=== PATIENT | male | born 1985 | race Caucasian/White ===

== ENCOUNTER → 2019-10-25 15:50 | Outpatient (CLI) | payer MEDICARE, SELFPAY ==
--- NOTE | 2019-10-25 | DI.MRI.S_ITS ---
PROCEDURE: MR CERVICAL SPINE WO CON INDICATIONS: other spondylosis with radiculopathy, cervical TECHNIQUE: Noncontrast sagittal T1 spin echo and T2 fast spin echo, sagittal STIR, foraminal oblique sagittal T2 fast spin echo, and axial gradient echo or T2 fast spin echo through the cervical spine. COMPARISON: None. FINDINGS: Image quality: This examination is limited by involuntary motion artifact. Alignment and Curvature: There is normal bony alignment. Bone Marrow: Marrow demonstrates normal overall signal. Spinal Cord: Visualized spinal cord has normal size. Prominence of the central canal can be seen throughout the cervical spine. No cerebellar tonsillar herniation. Paraspinous Soft Tissues: No paravertebral masses. Prevertebral soft tissues are normal in thickness. C2-C3: Mild loss of disc height is seen. Loss of disc signal is seen. Mild to moderate disc osteophyte complex is seen, which is eccentric to the right. There is moderate right-sided and mild left-sided neural foraminal narrowing seen. Mild central canal narrowing is seen. C3-C4: Tqgm-vv-zcypqrkh loss of disc height and disc signal can be seen. Moderate disc osteophyte complex is seen, with a central disc osteophyte protrusion. There is moderate facet hypertrophy seen, left worse than right. There is moderate to severe left-sided and moderate right-sided neural foraminal narrowing seen. At least moderate central canal narrowing is seen. There is associated mass effect upon the ventral spinal cord. C4-C5: Ctqo-zl-grawqhmp loss of disc height and disc signal can be seen. Moderate disc osteophyte complex is seen, which is eccentric to the left. There is a left lateral recess/left foraminal disc extrusion. There is a left lateral recess/left foraminal disc osteophyte protrusion seen. Mild to moderate facet hypertrophy is seen. There is moderate to severe left-sided and moderate right-sided neural foraminal narrowing seen. Moderate to severe central canal narrowing is seen. There is associated mass effect upon the ventral spinal cord. C5-C6: Moderate loss of disc height is seen. Loss of disc signal is seen. Moderate disc osteophyte complex is seen, which is eccentric to the left. There is a left lateral recess disc extrusion seen extending into the left neural foramen, with mild superior migration of the disc material. Moderate bilateral neural foraminal narrowing is seen. There is moderate to severe bilateral neural foraminal narrowing seen at this level. Moderate to severe central canal narrowing is seen. There is associated mass effect upon the ventral spinal cord. C6-C7: The disc height and disc signal are relatively well preserved. Mild to moderate disc osteophyte complex is seen, which is eccentric to the right. Mild facet joint hypertrophy is seen. Moderate bilateral neural foraminal narrowing is seen. No significant central canal narrowing is seen. C7-T1: The disc height and disk signal are well-preserved. A mild degree of generalized disc osteophyte complex is seen. Mild facet joint hypertrophy is seen. There is mild to moderate left-sided and no significant right-sided neural foraminal narrowing seen. No significant central narrowing is seen. IMPRESSION: There is abnormal prominence of the central canal. If clinically appropriate, please consider a follow-up contrast-enhanced examination to evaluate for a potential underlying cervical cord mass. Multiple levels of premature cervical spine degenerative change are seen, which are most prominent at the C5-C6 level. Dictated by: Santiago Keane M.D. on 10/25/2019 at 16:21 Approved by: Santiago Keane M.D. on 10/25/2019 at 16:27
== END ==
LOC: MRI 15:57
PROVIDERS: PCP Student in an Organized Health Care Education/Training Program; Referring Provider Student in an Organized Health Care Education/Training Program; Visit Provider Orthopaedic Surgery Orthopaedic Surgery of the Spine
DX: M47.22 Other spondylosis with radiculopathy, cervical region (principal)
CPT/HCPCS: 72141

== ENCOUNTER → 2019-11-09 11:02 | Outpatient (CLI) | payer MEDICARE, SELFPAY ==
--- NOTE | 2019-11-09 | DI.MRI.S_ITS ---
PROCEDURE: MR CERVICAL SPINE WO/W CON INDICATIONS: Radiculopathy, cervical region TECHNIQUE: Noncontrast sagittal T1 spin echo and T2 fast spin echo, sagittal STIR, foraminal oblique sagittal T2 fast spin echo, axial gradient echo or T2 fast spin echo through the cervical spine. After the administration of contrast, axial and sagittal T1 spin echo with fat saturation through the cervical spine. COMPARISON: [facility], MR, MR CERVICAL SPINE WO CON, 10/25/2019, 16:21. [facility], CR, XR CERVICAL SPINE 2 OR 3 VIEWS, 08/21/2019, 14:59. FINDINGS: Image quality: Excellent. Alignment and curvature: Loss of normal cervical lordosis. Mild grade 1 retrolisthesis of C3 on C4, C4 on C5, and C5 on C6. Marrow: Marrow is normal in overall signal, without suspicious enhancement. Spinal cord: Visualized spinal cord has normal size . High T2 signal intensity within the central medulla, extending into the mid and posterior aspect of the cervical cord to the mid C7 level, is unchanged. No cerebellar tonsillar herniation. No abnormal intramedullary enhancement. Paraspinous soft tissues: No paravertebral masses or suspicious enhancement. C2-3: Congenital canal stenosis. Moderate disc height loss and desiccation. Mild diffuse disc bulge. Mild facet and uncovertebral hypertrophy bilaterally. Mild canal stenosis. Mild bilateral foraminal stenosis. C3-4: Congenital canal stenosis. Moderate disc height loss and desiccation. Moderate diffuse disc bulge. Mild facet and uncovertebral hypertrophy bilaterally. Severe canal stenosis. Minimal cord flattening. Moderate right and severe left foraminal stenosis. Left C4 nerve root compression. C4-5: Moderate disc height loss and desiccation. Moderate diffuse disc bulge with superimposed left posterolateral protrusion. Congenital canal stenosis. Mild facet and uncovertebral hypertrophy, left greater than right. Moderate to severe canal stenosis. Severe left and moderate right foraminal stenosis. Left C5 nerve root compression. C5-6: Moderate disc height loss and desiccation. Moderate diffuse disc bulge with superimposed left posterolateral protrusion. Congenital canal stenosis. Moderate facet and uncovertebral hypertrophy bilaterally. Severe canal stenosis. Minimal cord flattening. Severe left greater than right foraminal stenosis with left greater than right C6 nerve root compression. C6-7: Mild disc height loss and desiccation. Mild diffuse disc bulge. Mild facet and uncovertebral hypertrophy bilaterally. Mild canal stenosis. Moderate left and mild right foraminal stenosis. C7-T1: Mild facet and uncovertebral hypertrophy bilaterally. No canal stenosis. Mild bilateral foraminal stenosis. IMPRESSION: 1. T2 signal elevation within the medulla and cervical cord as described above without associated enhancement. Differential considerations include cord edema, myelitis, multiple sclerosis, cord injury/infarct, and metabolic sequelae. Clinical correlation recommended. Initial further assessment with brain MRI with and without intravenous contrast is recommended. 2. Diffuse congenital canal stenosis with superimposed multilevel degenerative disc and facet disease, as well as uncovertebral hypertrophy. 3. Multilevel canal stenosis, worst at C3-C4 and C5-C6, where there is minimal cord flattening. 4. Multilevel foraminal stenosis, worst at C3-C4, C4-C5, and C5-C6 where there is associated intraforaminal nerve root compression. Dictated by: Giovany Florian M.D. on 11/09/2019 at 14:34 Transcribed by: OMI on 11/09/2019 at 14:51 Approved by: Giovany Florian M.D. on 11/09/2019 at 15:11
== END ==
PROVIDERS: PCP Student in an Organized Health Care Education/Training Program; Referring Provider Student in an Organized Health Care Education/Training Program; Visit Provider Orthopaedic Surgery Orthopaedic Surgery of the Spine
DX: M50.11 Cervical disc disorder with radiculopathy, high cervical region (principal); M48.02 Spinal stenosis, cervical region
CPT/HCPCS: 72156

== ENCOUNTER → 2019-11-21 16:42 | Outpatient (CLI) | payer MEDICARE, SELFPAY ==
--- NOTE | 2019-11-21 16:44 | DI.MRI.S_ITS ---
PROCEDURE: MR HEAD/BRAIN WO/W CON INDICATIONS: SPONDYLIOSIS WITH RADICULOPATHY, CERVICAL REGION TECHNIQUE: Noncontrast axial T1 spin echo, axial T2 fast spin echo, sagittal and axial FLAIR, coronal T2 fast spin echo, axial gradient echo, axial diffusion and ADC through the brain. After the administration of contrast, axial and coronal 3D VIBE or T1 spin echo with fat saturation through the brain. COMPARISON: [facility], MR, MR CERVICAL SPINE WO/W CON, 11/09/2019, 11:40. FINDINGS: Image quality: Excellent. CSF Spaces: Basal cisterns are patent. No extra-axial fluid collections. Ventricles are normal in size and shape. Brain: No midline shift. No intracranial bleeds or masses. No abnormal intracranial enhancement. The brainstem appears normal. Diffusion-weighted images demonstrate no acute ischemic insults. No chronic ischemic insults. Normal intravascular flow voids are present. Only a small portion of the upper cervical cord is included in this study, and this area and the contiguous lower margin of the medulla show no change from findings noted on prior cervical MR study 11/09/19. The central spinal canal appears mildly prominent, at the lower imaging margin. Skull and face: Calvarial marrow is normal in signal. Orbits appear normal. Sinuses: Sinuses and mastoids appear clear. IMPRESSION: No lesion found within the brain parenchyma. Stable appearance of the small portion of the cervical cord and lower margin of the medulla with reference to the prior MR scanning from 11/09/19. A component of hydromyelia appears present. Dictated by: Brandon Snider M.D. on 11/22/2019 at 8:00 Approved by: Brandon Snider M.D. on 11/22/2019 at 8:06
== END ==
PROVIDERS: PCP Student in an Organized Health Care Education/Training Program; Referring Provider Student in an Organized Health Care Education/Training Program; Visit Provider Physical Medicine & Rehabilitation Pain Medicine
DX: M47.22 Other spondylosis with radiculopathy, cervical region (principal)
CPT/HCPCS: 70553; A9579

== ENCOUNTER 2019-11-26 13:18 | Emergency (ER) | payer MEDICARE, SELFPAY ==
--- NOTE | 2019-11-26 13:36 | DI.RAD.S_ITS ---
PROCEDURE: XR ANKLE LT MIN 3V INDICATIONS: fall, lt ankle/foot pain/swelling TECHNIQUE: 3 views of the ankle were acquired. COMPARISON: None. FINDINGS: Bones: No fractures or dislocations. Ankle mortise is normally aligned. No suspicious bony lesions. Soft tissues: No tibiotalar joint effusion. Achilles tendon appears normal. IMPRESSION: No trauma found. Dictated by: Brandon Snider M.D. on 11/26/2019 at 14:24 Approved by: Brandon Snider M.D. on 11/26/2019 at 14:25
--- NOTE | 2019-11-26 13:36 | DI.RAD.S_ITS ---
PROCEDURE: XR FOOT LT MIN 3V INDICATIONS: fall, lt ankle/foot pain/swelling TECHNIQUE: 3 views of the foot were acquired. COMPARISON: [facility], CR, XR ANKLE LT MIN 3V, 11/26/2019, 13:27. FINDINGS: Bones: No dislocations. No suspicious bony lesions. There is a set of fractures across the base of each of the 2nd 3rd and 4th metatarsal bones, most prominently involving the base of the 2nd metatarsal bone, and the appearance raises concern for Lisfranc fracture and instability of the fracture planes is potentially present Soft tissues: No tibiotalar joint effusion. Achilles tendon appears normal. IMPRESSION: Mildly displaced multiple fractures at the base of the metatarsal bones, involving the 2nd 3rd and 4th metatarsal bones with transverse fractures and mild comminution. This may represent an unstable fracture, Lisfranc fracture, and orthopedic surgical consultation is recommended. Dictated by: Brandon Snider M.D. on 11/26/2019 at 14:25 Approved by: Brandon Snider M.D. on 11/26/2019 at 14:27
[2019-11-26 13:52] VITALS: BP 165/101; PULSE 100; RESP 20; O2SAT 99
--- NOTE | 2019-11-26 15:16 | ED.LOWEXIN ---
HPI - Extremity Injury (Lower) <FAWN Kraus - Last Filed: 11/26/19 22:02> General Chief Complaint: Extremity Injury, Lower Stated Complaint: Fell Off Take, States Broke Left Foot Time Seen by Provider: 11/26/19 13:58 Source: patient Mode of arrival: Ambulatory Limitations: no limitations History of Present Illness HPI Narrative: This is a 34-year-old male who presents to ED with significant other with chief complain of left foot pain after injury yesterday. Patient reports he accidentally fell of the dock and hyper extended his foot. He reports 10/10 pain in dorsal and plantar all aspect of his midfoot with significant swelling. He denies pain in his ankle. Patient denies previous injury to same foot or ankle. He reports intact sensation and mobility to his toes. He denies open skin with this injury. Patient had used ice pack last night and had taken ibuprofen 600 mg at 10:00 a.m. today. Pain increases with movement it is and bearing weight and rates as 10/10. Patient currently takes Suboxone for previous drug addiction. Review of Systems <FAWN Kraus - Last Filed: 11/26/19 22:02> Review of Systems Narrative: General: Denies fever, chills, fatigue, malaise, sweats. HEENT: Denies sinus pain, ear pain, sore throat, difficulty swallowing, dizziness. Respiratory: Denies dyspnea, cough, wheezing, hemoptysis, sputum. Cardiovascular: Denies chest pain, palpitations, orthopnea, edema. Gastrointestinal: Denies nausea, vomiting, abdominal pain, diarrhea, constipation, melena. : Denies dysuria, frequency, incontinence, hematuria, urinary retention. Musculoskeletal: See HPI Skin: Denies rash, skin lesions, or other. Neurologic: Denies weakness, headache, numbness, change in speech, confusion, seizures, incoordination. Psychiatric: No concerning psychosocial issues. 12-point review of systems is negative except for those stated above. Patient History <FAWN Kraus - Last Filed: 11/26/19 22:02> Medical History Decreased vision (Acute) Drug use (Acute) Neck pain (Acute) Surgical History No pertinent past surgical history (Acute) Substance Use Type: former substance user Exam <FAWN Kraus - Last Filed: 11/26/19 22:02> Narrative Exam Narrative: General appearance: well developed, well nourished, in mild distress from discomfort. Head: normocephalic, atraumatic, no scalp lesions, non-tender. ENT: Hearing grossly intact. Nose without bleeding, purulent discharge. Arway patent. Neck/Thyroid: neck supple, full range of motion, no visible masses or meningeal signs. No JVD, non-tender without lymphadenopathy. Skin: no suspicious rashes, lesions over visible areas. Warm and dry and appropriate color for ethnicity. Heart: no clubbing, no cyanosis, no edema. Lungs: Breathing even and unlabored. No stridor. No accessory muscles used. Able to speak in full sentences. Chest: normal shape and expansion. Abdomen: non-obese, non-distended. Neurologic: alert and oriented. Cognitive exam, [employer] and PNS grossly intact on informal exam. Psych: good eye contact, normal affect. Initial Vital Signs Initial Vital Signs: Vital Signs Pulse Rate 100 H 11/26/19 13:52 Respiratory Rate 11/26/19 13:52 Blood Pressure 165/101 H 11/26/19 13:52 Pulse Oximetry 99 11/26/19 13:52 Extrem Left lower extremity: lower leg Details: normal to inspection; no tenderness and no localized swelling, ankle Details: normal to inspection; no tenderness and no swelling and foot Details: abnormal to inspection, tenderness Location: of the dorsal foot, of the plantar foot and of the mid foot, abnormal ROM of toe Details: pain with active ROM and pain with passive ROM, edema Location: of the dorsal foot and of the plantar foot, ecchymosis (mid foot), vascular exam Details: dorsalis pedis pulse present and normal capillary refill and motor-sensory exam Details: light-touch normal; no unusual warmth, no lacerations, no crepitus and no puncture wound <Ave Saleh DO - Last Filed: 11/28/19 08:32> Initial Vital Signs Initial Vital Signs: Vital Signs Pulse Rate 100 H 11/26/19 13:52 Respiratory Rate 11/26/19 13:52 Blood Pressure 165/101 H 11/26/19 13:52 Pulse Oximetry 99 11/26/19 13:52 Procedures <Ross DuganFAWN - Last Filed: 11/26/19 22:02> Orthopedic Splinting/Casting Injury #1: Side: left Lower Extremity Injury Location: foot Lower Extremity Immobilizer: posterior splint Other Orthopedic Equipment: crutches Post splinting neuro exam: intact Post splinting vascular exam: intact Placed by: Nursing Scores <Ross HuntFAWN thomas - Last Filed: 11/26/19 22:02> GCS Maggie coma scale eye opening: Spontaneous [place] coma scale verbal response: Orientated [place] coma scale motor response: Obey commands Maggie coma scale total score: 15 Course <Ross DuganFAWN - Last Filed: 11/26/19 22:02> Orders Ordered: Discontinued Medications Acetaminophen (Tylenol) 650 mg PO NOW ONE Stop: 11/26/19 15:19 Last Admin: 11/26/19 15:30 Dose: 650 mg Documented by: BetoZOUTIS Ibuprofen (Advil) 400 mg PO NOW ONE Stop: 11/26/19 16:08 Last Admin: 11/26/19 16:10 Dose: 400 mg Documented by: KIERAN Consultations Consultation #1: Dr. Delgado consulted with xray and physical findings. He recommended elevation and ice to decrease swelling and put patient on short leg splint with crutches for nonweightbearing and to follow-up with Dr. Garza by calling the office tomorrow. Time: 15:17 Vital Signs Vital signs: Vital Signs - 8 hr 11/26/19 13:52 Pulse Rate 100 H Respiratory Rate 20 Blood Pressure 165/101 H Pulse Oximetry 99 <Ave Saleh DO - Last Filed: 11/28/19 08:32> Orders Ordered: Discontinued Medications Acetaminophen (Tylenol) 650 mg PO NOW ONE Stop: 11/26/19 15:19 Last Admin: 11/26/19 15:30 Dose: 650 mg Documented by: BetoZOUTIS Ibuprofen (Advil) 400 mg PO NOW ONE Stop: 11/26/19 16:08 Last Admin: 11/26/19 16:10 Dose: 400 mg Documented by: KIERAN Vital Signs Vital signs: Vital Signs - 8 hr 11/26/19 13:52 Pulse Rate 100 H Respiratory Rate 20 Blood Pressure 165/101 H Pulse Oximetry 99 MDM - Extremity Injury (Lower) <FAWN Kraus - Last Filed: 11/26/19 22:02> Differential Diagnosis Differential diagnosis: Likely ankle sprain and strain and other (Foot strain, foot fracture, ankle fracture,) Medical Records Attestation: I reviewed the patient's medical records. Imaging Data XR-Foot LT: Radiologist's Impression: [address] [id number] XRay Report Signed Patient: Scottie Hernandez PMR#: [id number] : 1985Acct:[id number] Age/Sex: 34 / MDate of Service: 11/26/19 Loc: ED Accession Number: [id number] Procedure: XR foot LT min 3V Ordering Provider: Ave Saleh D.O. PROCEDURE: XR FOOT LT MIN 3V INDICATIONS: fall, lt ankle/foot pain/swelling TECHNIQUE: 3 views of the foot were acquired. COMPARISON: [facility], , XR ANKLE LT MIN 3V, 11/26/2019, 13:27. FINDINGS: Bones: No dislocations. No suspicious bony lesions. There is a set of fractures across the base of each of the 2nd 3rd and 4th metatarsal bones, most prominently involving the base of the 2nd metatarsal bone, and the appearance raises concern for Lisfranc fracture and instability of the fracture planes is potentially present Soft tissues: No tibiotalar joint effusion. Achilles tendon appears normal. IMPRESSION: Mildly displaced multiple fractures at the base of the metatarsal bones, involving the 2nd 3rd and 4th metatarsal bones with transverse fractures and mild comminution. This may represent an unstable fracture, Lisfranc fracture, and orthopedic surgical consultation is recommended. Dictated by: Brandon Snider M.D. on 11/26/2019 at 14:25 Approved by: Brandon Snider M.D. on 11/26/2019 at 14:27 XR-Ankle LT: Radiologist's Impression: [address] [address] XRay Report Signed Patient: Scottie Hernandez PMR#: [id number] : 1985Acct:[id number] Age/Sex: 34 / MDate of Service: 11/26/19 Loc: ED Accession Number: [id number] Procedure: XR ankle LT min 3V Ordering Provider: Ave Saleh D.O. PROCEDURE: XR ANKLE LT MIN 3V INDICATIONS: fall, lt ankle/foot pain/swelling TECHNIQUE: 3 views of the ankle were acquired. COMPARISON: None. FINDINGS: Bones: No fractures or dislocations. Ankle mortise is normally aligned. No suspicious bony lesions. Soft tissues: No tibiotalar joint effusion. Achilles tendon appears normal. IMPRESSION: No trauma found. Dictated by: Brandon Snider M.D. on 11/26/2019 at 14:24 Approved by: Brandon Snider M.D. on 11/26/2019 at 14:25 MDM Narrative Medical decision making narrative: Patient has significant swelling and discomfort on left dorsal foot and plantar aspect of midfoot with light ecchymosis dorsally. Intact pedal pulse with brisk cap refill and sensation distally. Patient is able to move toes reports discomfort with this. X-ray test shows mildly displaced multiple fractures at the base of the metatarsal bones involving 2nd, 3rd and 4th metatarsal bones with transverse fractures and mild comminution and concerned for Lisfranc fracture. Ankle x-ray without acute findings. Dr. Delgado consulted with physical and xray findings. Patient's affected foot was placed done bulky dressing short leg splint. Applied ice pack and continue to elevate on affected leg to decrease swelling. Patient medicated with Tylenol and Motrin while in ED. due to patient is currently taking Suboxone narcotic medication was not prescribed at this time. Patient advised to contact his addiction clinic provider to discuss his foot injury and recommendation for pain management and to contact this clinician tomorrow. RICE therapy discussed to prevent increasing swelling and compartment syndrome and return precautions were discussed with patient. Patient advised nonweightbearing on affected leg. Patient advised to follow-up with [facility] orthopedist tomorrow morning by calling to set up an follow-up appointment with Dr. Garza as Dr. Delgado recommended. Patient verbalized understanding and agreement with the treatment plan. Discharge Plan Departure Patient Disposition: Home Clinical Impression: Lisfranc fracture Discharge Date/Time: 11/26/19 16:33 Instructions: DI for Foot Fracture Activity Restrictions/Additional Instructions: You have been diagnosed with [left foot 2nd, 3rd and 4th metatarsal bone fracture concerned for Lisfranc fracture. Affected foot has been placed on splint and please wear this all time. Please no weight-bearing on affected leg and use crutches that has been provided. Please elevate and use ice pack on affected leg for swelling and pain.]. What to do: *Take your medications as directed. Please take [id number] Tylenol and or Motrin as needed for discomfort. With Suboxone use, please contact your addiction clinic provider tomorrow to consult this. I work tomorrow on Tuesday so you can give me a call with the information for pain medication. You can use Tylenol 650-1000 mg 3 to 4 times a day as needed for pain. Ibuprofen 400-600 mg up to 3 to 4 times a day as needed for pain and inflammation and take it with food to decrease GI irritation. *Follow up with your primary care provider in 2-3 days, call for an appointment. Please call [facility] tomorrow morning to follow-up with Dr. Garza this week. Let them know you were seen in the ED and that we asked you to be seen in follow up. *Return to ED if you have any new, worsening, or concerning symptoms, such as [worsening pain, pale and cool toes, increasing tingling/numbness/weakness to affected leg, chest pain, breathing difficulty, or any acute concerns. When swelling is too significant it can compress down to nerves and blood vessels called compartment syndrome. ] Referrals: [facility] [Provider Group] Meenakhsi Cardenas MD [Primary Care Provider] - <Ave Saleh DO - Last Filed: 11/28/19 08:32> [facility] Att[facility]: I was immediately available in the department for consultation. Documentation has been reviewed. I agree with assessment and plan.
[2019-11-26] MEDS: ACETAMINOPHEN 325 MG TABLET 650 MG PO (15:30)
[2019-11-26] MEDS: IBUPROFEN 400 MG TABLET PO (16:10)
== END 2019-11-26 16:33 | disposition home or self-care (01) ==
PROVIDERS: Emergency Provider Nurse Practitioner Family; PCP Student in an Organized Health Care Education/Training Program
DX: S92.322A Displaced fracture of second metatarsal bone, left foot, initial encounter for closed fracture (principal); S92.332A Displaced fracture of third metatarsal bone, left foot, initial encounter for closed fracture; S92.342A Displaced fracture of fourth metatarsal bone, left foot, initial encounter for closed fracture; W17.4XXA Fall from dock, initial encounter
CPT/HCPCS: 73610; 73630; 99283

== ENCOUNTER → 2019-12-21 15:50 | Outpatient (CLI) | payer MEDICARE, SELFPAY ==
--- NOTE | 2019-12-21 | DI.CT.S_ITS ---
PROCEDURE: CT LE LT W CON INDICATIONS: Pain in left foot TECHNIQUE: Noncontrast 1-1.5 mm axial sections acquired from above the tibiotalar joint to the bottom of the calcaneus, with coronal and sagittal reformats. COMPARISON: [facility], CR, XR FOOT LT MIN 3V, 11/26/2019, 13:27. [facility], CR, XR FOOT 3 VIEWS WEIGHT BEARING LEFT, 12/04/2019, 14:04. FINDINGS: Image quality: Excellent. Bones: There is a comminuted, minimally displaced and impacted fracture at the base of the 2nd metatarsal with extension into the 2nd tarsometatarsal joint. The fracture includes the attachment site of the Lisfranc ligament without significant widening of the 1st intermetatarsal space. Additional minimally displaced fractures are seen at the bases of the 3rd and 4th metatarsals. The 3rd metatarsal fracture is minimally comminuted. Soft tissues: Soft tissue edema is seen at the dorsum of the foot. The articular cartilages, ligaments, and tendons including the Lisfranc ligament are not well evaluated with CT. IMPRESSION: Comminuted, minimally displaced, intra-articular fracture of the base of the 2nd metatarsal. Additional minimally displaced fractures are seen at the bases of the 3rd and 4th metatarsals. Dictated by: Ross Conde M.D. on 12/21/2019 at 16:45 Approved by: Ross Conde M.D. on 12/21/2019 at 16:52
== END ==
PROVIDERS: PCP Student in an Organized Health Care Education/Training Program; Referring Provider Student in an Organized Health Care Education/Training Program; Visit Provider Orthopaedic Surgery Foot and Ankle Surgery
DX: M79.672 Pain in left foot (principal); S92.322A Displaced fracture of second metatarsal bone, left foot, initial encounter for closed fracture; S92.332A Displaced fracture of third metatarsal bone, left foot, initial encounter for closed fracture; S92.342A Displaced fracture of fourth metatarsal bone, left foot, initial encounter for closed fracture; X58.XXXA Exposure to other specified factors, initial encounter
CPT/HCPCS: 73700

== ENCOUNTER → 2020-01-01 14:58 | Outpatient (CLI) | payer MEDICARE, SELFPAY ==
[2020-01-02 11:14] LABS: COVID19 Sendout Not Detected (Not Detect)
== END ==
PROVIDERS: PCP Student in an Organized Health Care Education/Training Program; Visit Provider Physician Assistant
DX: Z01.812 Encounter for preprocedural laboratory examination (principal)
CPT/HCPCS: 87635

== ENCOUNTER 2020-01-04 06:24 | Day surgery (SDC) | payer MEDICARE, SELFPAY ==
[2020-01-04] VITALS (9 sets, daily range): BP systolic 108–166; BP diastolic 60–105; PULSE 77–99; RESP 11–20; TEMP 36.2–37.7; O2SAT 96–100; BMI 19.7
[2020-01-04] MEDS: LACTATED RINGERS 1,000 ML 42 ML IV (07:15)
[2020-01-04] MEDS: ACETAMINOPHEN 325 MG TABLET 975 MG PO (07:24)
[2020-01-04] MEDS: SCOPOLAMINE 1 PATCH TOP (07:24)
--- NOTE | 2020-01-04 07:26 | PM.PREOP ---
Pre-operative Note COVID-19 COVID-19 status: Negative Interval Note History & Physical reviewed/Exam performed by Physician: Yes Changes to H&P: No
[2020-01-04] MEDS: CEFAZOLIN 2 GM/100 ML FROZ.PIGGY IV (07:42)
--- NOTE | 2020-01-04 07:56 | SUR.PREOP ---
Block start time [0730] . Monitoring initiated and maintained throughout procedure. Oxygen and medications given per anesthesiologist instructions. Patient remained stable throughout procedure, no adverse reactions noted. Block end time [0740].
--- NOTE | 2020-01-04 08:30 | SUR.OPER ---
Supine on padded OR bed, head on pillow, arms secured on padded arm boards at <90 degrees abduction, legs uncrossed, safety belt at thigh, tape over blanket over lower legs. Bilat heels at foot of bed. Additional blankets under operative leg and bump under left hip per Surgeon.
[2020-01-04] MEDS: BUPIVACAINE 0.25% W/ EPI 30 ML VIAL INJ (08:38)
--- NOTE | 2020-01-04 09:32 | PM.OP.1 ---
Operative Date/Time/Diagnoses Date of procedure: 01/04/20 Time of procedure: 08:05 Pre-op diagnosis: Dislocation tarsometatarsal joint left foot S93.325 Closed nondisplaced fracture 2nd metatarsal bone left foot S92.325 Intercuneiform instability Nondisplaced fractures 3rd and 4th metatarsals Post-op diagnosis: same Procedure & Clinicians Procedure: 1. Open reduction internal fixation Lisfranc injury left foot CPT code 69127 2. Open reduction internal fixation inter cuneiform joint left foot CPT code 42963-16 3. Open reduction internal fixation 2nd metatarsal fracture cpt code 11253 4. Closed treatment 3rd metatarsal fracture cpt 90144 5. Closed treatment 4th metatarsal fracture cpt 25125 Same procedure as scheduled: Yes Indications: Patient is a 34-year-old male that sustained an injury to his left foot after a fall on 11/25/2019 where he fell off a dock. Had a Lisfranc variant injury with fracture of the base of the 2nd metatarsal and 3rd and 4th metatarsal nondisplaced fractures. Id widening of the Lisfranc articulation as well as inter cuneiform. He was indicated for open reduction internal fixation to reduce the risk of posttraumatic arthritis pain and dysfunction. The risks and benefits of the procedure have been discussed with the patient even opportunity to ask questions. The risks of surgery include but are not limited to infection, malunion, nonunion, persistence of pain, damage to nerves and blood vessels, posttraumatic arthritis, DVT, PE, cardiopulmonary complications and . The patient expressed a thorough understanding of the risks and benefits of surgery and has elected to proceed. Consent was signed in the office. Surgeon: Anyi Garza Click Yes if Unassisted: Yes Anesthesia Type: General, Peripheral nerve block and Local Operative Notes Closure Type: primary Specimen(s): none sent Prosthetic devices, grafts, tissues, transplants, or devices: Arthrex 3.5 cortical screw 46mm, Arthrex 3.5 cortical screw 24mm Estimated Blood Loss (mL): 5 Blood products transfused: none Tourniquet time (min): 30 Procedure in detail: Patient was seen in the preoperative area the site of surgery was marked and informed consent confirmed. Patient underwent a popliteal block with the anesthesia team for postoperative pain control. The patient was then brought back to the operating room by the anesthesia team placed supine on operative table. All bony prominence were padded. Well-padded thigh tourniquet was placed. An SCD was placed on the contralateral extremity. Left lower extremities prepped and draped in the standard sterile fashion. Formal time-out procedure was performed confirming the patient's side and site of surgery administration of appropriate preoperative antibiotics. All were in agreement. Mini C-arm fluoroscopy was brought in and planned incisions were marked out. There is a diastasis at the Lisfranc articulation and instability at the inter cuneiform. There was no apparent instability of the 1st TMT. The 3rd and 4th metatarsal fractures remained well reduced. Attention was then turned to the left leg. The Esmarch was used for exsanguination and the tourniquet was elevated to 250 mm of mercury. This was elevated for 30 minutes and then released. A 3 in a 0.5 cm incision over the base of the 2nd ray and 2nd TMT joint was taken down the skin. Careful dissection through the subcutaneous tissues lateral to the neurovascular bundle. This was retracted medially. Dissection was taken down onto the level of the 2nd metatarsal base and middle cuneiform. Dissection was carried to the Lisfranc articulation. Due to the subacute age of the fracture the 2nd metatarsal fracture did have good callus formation and was moving as a unit. Once the Lisfranc articulation was debrided a large Garvey clamp was utilized from a stab incision along the medial cuneiform and to the base of the 2nd metatarsal to reduce the Lisfranc articulation. This was checked on C-arm fluoroscopy. Next a K-wire from the 4 0 cannulated set was placed just distal to the clamp to capture the 2nd metatarsal shaft and directed proximally into the medial cuneiform passing through the Lisfranc articulation and 2nd metatarsal fracture site. Positioning for this screw was checked again on multiplanar fluoroscopy. This was then overdrilled with a cannulated drill and then exchanged for a solid 3.5 position cortical screw. This reduced and fixated both the Lisfranc articulation as well as the 2nd metatarsal base fracture. Next a separate wire was placed from the medial cuneiform across the middle cuneiform to address the inter cuneiform instability. This was again overdrilled with the cannulated drill bit and then replaced with a solid 3.5x 24 mm Arthrex cortical screw. Fixation was then stressed under live fluoroscopy there was no evidence of loss of fixation. Again the 1st TMT joint was stable. Positions of the 3rd and 4th metatarsal fractures were also stable for closed treatment. At this point the tourniquet was released. Hemostasis was achieved. The wound was irrigated and closed with 2 O Vicryl 4 0 Monocryl and 3 O nylon suture. 10 cc of additional local anesthetic was injected. A well-padded posterior splint with bulky Goode cotton was placed. Patient was awoken from anesthesia and taken to the recovery room in good condition. There no immediate complications from this procedure. Complications: none Post-operative Condition: stable Plan for aftercare: Nonweightbearing x6 weeks and progressive weight-bearing in a boot with the arch support. Discussed and less symptomatic would plan to retained hardware. Follow-up in 2 weeks for incision check suture removal. Aspirin for DVT prophylaxis.
--- NOTE | 2020-01-04 10:36 | SUR.PHASEII ---
discontinued both existing IV sites, one to right forearm and one to Right EJ, catheters intact.
== END 2020-01-04 10:35 | disposition home or self-care (01) ==
PROVIDERS: PCP Student in an Organized Health Care Education/Training Program; Referring Provider Student in an Organized Health Care Education/Training Program; Visit Provider Orthopaedic Surgery Foot and Ankle Surgery
PROC: (CPT 28615; principal; 2020-01-04 07:45)
DX: S93.325A Dislocation of tarsometatarsal joint of left foot, initial encounter (principal); S92.322A Displaced fracture of second metatarsal bone, left foot, initial encounter for closed fracture; S92.345A Nondisplaced fracture of fourth metatarsal bone, left foot, initial encounter for closed fracture; S92.335A Nondisplaced fracture of third metatarsal bone, left foot, initial encounter for closed fracture; M25.39 Other instability, other specified joint; W17.89XA Other fall from one level to another, initial encounter; Y92.89 Other specified places as the place of occurrence of the external cause
CPT/HCPCS: 28615; 28485; 28470 ×2; 64450; J0690; J1100; J1885; J2250; J2405; J2704

== ENCOUNTER 2020-06-04 06:31 | Emergency (ER) | payer MEDICARE, SELFPAY ==
[2020-06-04 06:35] VITALS: BP 184/104; PULSE 80; RESP 18; TEMP 35.9; O2SAT 100; BMI 20.3
[2020-06-04 07:00] VITALS: BP 161/105; PULSE 81; RESP 18; O2SAT 100
--- NOTE | 2020-06-04 07:03 | ED.GENADULT ---
HPI - General Adult General Chief complaint: Dizziness Stated complaint: woke up sweating, dizzy, cold tingling Time Seen by Provider: 06/04/20 06:34 Source: patient Mode of arrival: Ambulatory Limitations: no limitations History of Present Illness HPI narrative: 34-year-old male who was on Suboxone and also has an extensive alcohol history who is here in the emergency department last night for being dizzy, sweating, tingling. He states he was up at about 0200 hours in the morning. He was having a hard time sleeping. The initial stated complaint was that he woke up feeling like this but on my exam he states he was awake when the symptoms started. He states that he was using oral tobacco with the time which is not unusual for him trying to go to sleep when he had a sudden onset of dizziness and feeling very thirsty. He states he drank several bottles of water at the time. Did not have any vomiting. Did not have any chest pain or headache. He states that he is legally blind did not think that he had any changes in his vision. He did think that maybe his heart was beating fast at the time but he is unsure. He describes it as tingling in his hands and his feet. He had his girlfriend tried to take his temperature and it was low although he was drinking water at the time. He is diagnosed with high blood pressure but he has not taken any of his metoprolol in the past 2 weeks. He did take 1 of these medicines last evening. At the time my evaluation he stated that he was feeling somewhat better but not completely normal. He did not describe any vertigo symptoms Related Data Home Medications Medication Instructions Recorded Confirmed Suboxone 8 mg DAILY 01/01/20 01/04/20 buprenorphine-naloxone 1 film SUBLINGUAL DAILY 01/04/20 01/04/20 Previous Rx's Medication Instructions Recorded aspirin 325 mg PO DAILY #42 tab 01/04/20 ondansetron HCl [Zofran] 4 mg PO Q8H PRN #5 tab 01/04/20 oxycodone 5 - 10 mg PO Q4H PRN #42 tab 01/04/20 Allergies Allergy/AdvReac Type Severity Reaction Status Date / Time No Known Drug Allergies Allergy Verified 01/01/20 12:38 Review of Systems Constitutional Constitutional: Reports chills, Denies fever(s), Denies headache(s) and Reports weakness Eyes Eyes: Denies change in vision ENT Ears, Nose, Mouth, and Throat: Denies vertigo, Reports dizziness, Denies headache(s) and Reports disequilibrium Cardiovascular Cardiovascular: Denies chest pain, Denies syncope, Reports rapid heart rate, Denies irregular heart rhythm and Denies dyspnea Respiratory Respiratory: Denies cough and Denies dyspnea Gastrointestinal Gastrointestinal: Denies abdominal pain, Denies change in bowel habits, Denies nausea and Denies vomiting Genitourinary Genitourinary: Denies dysuria Genitourinary: Denies dysuria Musculoskeletal Musculoskeletal: Denies arthralgias, Denies myalgias and Reports tingling Integumentary/Breasts Skin/Breast: Denies lesions and Denies rash Neurologic Neurologic: Denies confusion, Denies vertigo, Reports dizziness, Denies syncope, Denies headache(s), Denies convulsions, Reports tingling, Reports disequilibrium and Reports weakness Psychiatric Psychiatric: Denies confusion Hematologic/Lymphatic Hematologic/Lymphatic: Denies easy bleeding and Denies easy bruising On Anticoagulants: No Allergic/Immunologic Allergic/Immunologic: Denies urticaria Patient History Medical History (Updated 06/04/20 @ 08:12 by Abbe Barahona DO) Decreased vision Drug use Neck pain Surgical History No pertinent past surgical history Social History household members: significant other Smoking Status: Former smoker alcohol intake: current Smoking Status: Former smoker alcohol intake frequency: 3 or more drinks per day Substance Use Type: former substance user Exam Initial Vital Signs Initial Vital Signs: Vital Signs Temperature 96.7 F L 06/04/20 06:35 Pulse Rate 80 06/04/20 06:35 Respiratory Rate 18 06/04/20 06:35 Blood Pressure 184/104 H 06/04/20 06:35 Pulse Oximetry 100 06/04/20 06:35 Const General: cooperative, comfortable, well developed and well groomed Limitations: mental status not altered HENND Head: normal to inspection and normocephalic Resp Effort & Inspection: normal respiratory effort Auscultation: clear to auscultation bilaterally Cardio Rate: regular rate Rhythm: regular rhythm GI Inspection: non-distended Palpation: soft and No tender Skin Lesions: no lesions Rashes: no rashes Neuro General: patient alert, patient awake and patient oriented x3 Cranial Nerves: CN's II-XI intact bilaterally Cognition: normal cognition Speech: speech normal Sensory Exam: no sensory deficits noted Extrem General: normal to inspection and capillary refill normal Psych Appearance: grossly normal and well kempt Scores GCS [place] coma scale eye opening: Spontaneous [place] coma scale verbal response: Orientated Maggie coma scale motor response: Obey commands Maggie coma scale total score: 15 Course Orders Ordered: ED Orders 06/04/20 06:40 Complete Blood Count AUTO DIFF Stat Comprehensive Metabolic Panel Stat Lipase Stat Magnesium Stat Troponin & CK Cardiac Panel Stat 06/04/20 06:41 Ethanol (ETOH) Stat EKG-12 Lead Stat Discontinued Medications Sodium Chloride (Normal Saline 0.9%) 1,000 mls @ 1,000 mls/hr IV BOLUS ONE Stop: 06/04/20 07:38 Thiamine HCl 200 mg/ Sodium (Chloride) 52 mls @ 208 mls/hr IV NOW ONE Stop: 06/04/20 06:42 Vital Signs Vital signs: Vital Signs - 8 hr 06/04/20 06:35 Temperature 96.7 F L Pulse Rate 80 Respiratory Rate 18 Blood Pressure 184/104 H Pulse Oximetry 100 Medical Decision Making ECG Data Attestation: I personally reviewed and interpreted this ECG as follows: Prior ECG tracings: not available for review Interpretation: Sinus rhythm Ventricular rate of 79 Normal axis Normal QRS Normal QTC No ST T wave changes MDM Narrative Medical decision making narrative: He has a nonfocal neurologic exam. His EKG is unremarkable. Patient was able to ambulate to the bathroom without issues. His blood pressure improved without intervention. Patient does have a history of high blood pressure but only rarely takes his medications. I have low suspicion for CVA given his clinical presentation today. Low suspicion for TIA or cardiovascular disease. He does have a history of very hard IV start/blood draws. Had a discussion with him regarding this. We did discuss potential other issues causing his symptoms today to include low blood sugar, electrolyte abnormalities or anemia. I did tell him that I feel that these are fairly unlikely given his current exam. I offered to continue to attempt to try to obtain blood to evaluate for these issues however I did tell him I felt that they would be fairly low healed. He ultimately decided not to have any more blood drawn. He tolerated oral intake. I have a high suspicion that his symptoms this morning were related to anxiety. Tried to reassure the patient and his mother about these symptoms. We did discuss his elevated blood pressure and what he should do at home. He was given return precautions and follow-up instructions. He expressed understanding and agreement. Discharge Plan Departure Patient Disposition: Home Clinical Impression: Hypertension Instructions: Essential Hypertension Activity Restrictions/Additional Instructions: It is important that you take her blood pressure at home on a daily basis and record the values. This is important for you and your primary doctor to decide whether not the medications you are taking are appropriate for your elevated blood pressure. It is also important that you take your blood pressure medication. Contact your primary doctor for follow-up. Return to the emergency department for any new or worsening symptoms Prescriptions: No Action Suboxone 8 mg DAILY RF: 0 buprenorphine-naloxone 8-2 mg film 1 film sublingual DAILY RF: 0 oxycodone 5 mg tablet 5 - 10 mg PO Q4H PRN (Reason: pain) Qty: 42 RF: 0 ondansetron HCl [Zofran] 4 mg tablet 4 mg PO Q8H PRN (Reason: nausea and vomiting) Qty: 5 RF: 1 aspirin 325 mg tablet,delayed release (DR/EC) 325 mg PO DAILY Qty: 42 RF: 0 Referrals: Meenakshi Cardenas MD [Primary Care Provider] -
[2020-06-04 07:45] VITALS: BP 165/100; PULSE 82; RESP 16; O2SAT 100
[2020-06-04 08:00] VITALS: BP 175/103; PULSE 80; RESP 16; O2SAT 100
== END 2020-06-04 08:20 | disposition home or self-care (01) ==
PROVIDERS: Emergency Provider Emergency Medicine; PCP Student in an Organized Health Care Education/Training Program
DX: I10 Essential (primary) hypertension (principal); R53.1 Weakness; R42 Dizziness and giddiness; R07.9 Chest pain, unspecified
CPT/HCPCS: 93005; 93010; 99283